=== PATIENT | male | born 1970 | race Caucasian/White ===

== ENCOUNTER → 2017-01-21 | Outpatient (CLI) | payer OTHER ==
[~2017-01-21] MED LIST: GLIPIZIDE XL10 MG PO; HUMULIN 70100 UNIT/2 SC; HYZAAR 50-121 TABLET PO; METFORMIN HCL500 M1 PO; NAPROXEN500 MG PO; PRAVASTATIN SOD80 MG PO; ULTRAM50 MG PO
== END | disposition home or self-care (01) ==
LOC: NUC 07:30
DX: E06.3 Autoimmune thyroiditis (principal)
CPT/HCPCS: 78014; 78999; A9512; A9531